=== PATIENT | female | born 1990 | race Two or more races ===

== ENCOUNTER 2016-10-13 10:25 | Emergency (ER) | payer MEDICAID ==
[2016-10-13] MEDS ORDERED: levETIRAcetam 1,000 MG in NS 100 ML IV ONE (10:38)
--- NOTE | 2016-10-13 10:38 | EDPHY ---
H & P Constitutional: Initial Vital Signs Temperature (C) 37.1 C 10/13/16 10:32 Heart Rate 105 H 10/13/16 10:32 Respiratory Rate 12 10/13/16 10:32 Blood Pressure 133/75 H 10/13/16 10:32 O2 Sat (%) 99 10/13/16 10:32 O2 Delivery Mode Room Air O2 (L/minute) 2 Allergies/Adverse Reactions: No Known Allergies Allergy (Unverified 10/13/16 10:37) Home Medications: Medication Instructions Recorded Keppra 10/13/16 Medical Decision Making ED Course/Re-evaluation: CHIEF COMPLAINT: Seizure HISTORY OF PRESENT ILLNESS: This patient is a 26 year old female with history of seizure disorder arriving via EMS following a witnessed seizure shortly prior to arrival. She has had two seizures yesterday, and this is her second today. She does take Keppra and one other medication, and does not think she has missed any doses of her medications. She states she takes 1000mg Keppra BID. EMS administered 5mg Versed in transport for symptom relief while the patient was postictal. She is currently alert but somnolent. She endorses increased working to breathe. No fever, chest pain, vomiting, or other associated symptoms. REVIEW OF SYSTEMS: A 10 point review of systems was performed and is negative with the exception of the elements mentioned in the history of present illness. PHYSICAL EXAM: HR, BP, O2 Sat, RR. Temp noted General Appearance: Alert, well hydrated, appropriate, and non-toxic appearing. Head: Atraumatic without scalp tenderness or obvious injury Eyes: Pupils equal, round, reactive to light and accommodation, EOMI, no trauma , no injection. Ears: Clear bilaterally, no perforation, normal landmarks Nose: Atraumatic, no rhinorrhea, clear. Throat: There is no erythema or exudates, no lesions, normal tonsils, mucus membranes moist. Neck: Supple, nontender, no lymphadenopathy. Respiratory: No retractions, no distress, no wheezes, and no accessory muscle use. Lungs are clear to auscultation bilaterally. Cardiovascular: Regular rate and rhythm, no murmurs, rubs, or gallops. Good capillary refill all extremities. Gastrointestinal: Abdomen is soft, nontender, non-distended, no masses, no rebound, no guarding, no peritoneal signs. Musculoskeletal: Normal active ROM of all extremities, atraumatic. Neurological: Alert, appropriate, and interactive. The patient has normal DTRs and non-focal cranial nerves, motor, sensory, and cerebellar exam. Skin: No rashes, good turgor, no nodules on palpation. Past medical history: Seizure disorder Past surgical history: Noncontributory Family history: Noncontributory Social history: . at bedside. Lives in [place]. DIFFERENTIAL DIAGNOSIS: The differential diagnosis for the patient's seizure included but was not limited to electrolyte abnormality, alcohol withdrawal, medication noncompliance , head injury, DEPUTY COURT structural abnormality, and break through seizure. MEDICAL DECISION MAKIN26 year old female presents following witnessed seizure. Plan to administer 1gm IV Keppra. No signs of trauma noted on exam. The patient is followed by Dr. Ray [facility]. Plan to consult with Dr. Ray for further information regarding patient's medications and treatment. Plan for labs including CBC, BCHG. BCHG negative. Consulted with Dr. Moy Ray, patient's neurologist. He confirms 1000mg Keppra BID as well as 200mg Vimpat BID. He is comfortable following up with the patient in an outpatient setting. Discussed with patient. She feels comfortable with discharge home. She will follow up with [facility]. Return precautions discussed. The patient is comfortable with this plan. - Data Points Laboratory Results: Laboratory Results 10/13/16 11:20 10/13/16 11:20 10/13/16 10/13/16 10/13/16 11:20 11:20 11:00 WBC 5.58 10^3/uL 10^3/uL (3.80-9.50) RBC 5.00 10^6/uL 10^6/uL (4.18-5.33) Hgb 12.8 g/dL g/dL (12.6-16.3) Hct 41.8 % % (38.0-47.0) MCV 83.6 fL fL (81.5-99.8) MCH 25.6 pg L pg (27.9-34.1) MCHC 30.6 g/dL L g/dL (32.4-36.7) RDW 15.2 % % (11.5-15.2) Plt Count 290 10^3/uL 10^3/uL (150-400) MPV 11.7 fL fL (8.7-11.7) Neut % (Auto) 40.9 % % (39.3-74.2) Lymph % (Auto) 47.0 % H % (15.0-45.0) [place] % (Auto) 10.0 % % (4.5-13.0) Eos % (Auto) 1.4 % % (0.6-7.6) Baso % (Auto) 0.7 % % (0.3-1.7) Nucleat RBC Rel Count 0.0 % % (0.0-0.2) Absolute Neuts (auto) 2.28 10^3/uL 10^3/uL (1.70-6.50) Absolute Lymphs (auto) 2.62 10^3/uL 10^3/uL (1.00-3.00) Absolute Monos (auto) 0.56 10^3/uL 10^3/uL (0.30-0.80) Absolute Eos (auto) 0.08 10^3/uL 10^3/uL (0.03-0.40) Absolute Basos (auto) 0.04 10^3/uL 10^3/uL (0.02-0.10) Absolute Nucleated RBC 0.00 10^3/uL 10^3/uL (0-0.01) Immature Gran % 0.0 % % (0.0-1.1) Immature Gran # 0.00 10^3/uL 10^3/uL (0.00-0.10) Sodium 145 mEq/L H mEq/L (134-144) Potassium 4.2 mEq/L mEq/L (3.5-5.2) Chloride 106 mEq/L mEq/L (97-110) Carbon Dioxide 16 mEq/l L mEq/l (22-31) Anion Gap 23 mEq/L H mEq/L (8-16) BUN 10 mg/dL mg/dL (7-23) Creatinine 0.7 mg/dL mg/dL (0.6-1.0) Estimated GFR > 60 Glucose 98 mg/dL mg/dL (70-100) Calcium 10.0 mg/dL mg/dL (8.5-10.4) Total Bilirubin 0.8 mg/dL mg/dL (0.1-1.4) AST 28 IU/L IU/L (14-46) ALT 35 IU/L IU/L (9-52) Alkaline Phosphatase 79 IU/L IU/L (38-126) Total Protein 8.4 g/dL H g/dL (6.3-8.2) Albumin 5.0 g/dL g/dL (3.5-5.0) Beta HCG, Qual NEGATIVE Beta HCG, Quant < 2.39 mIU/mL mIU/mL (0.00-4.83) Medications Given: Discontinued Medications Levetiracetam 1,000 mg/ Sodium (Chloride) 110 mls @ 440 mls/hr IV EDNOW ONE Stop: 10/13/16 10:52 Last Admin: 10/13/16 11:16 Dose: 110 mls Departure - Departure Disposition: Home, Routine, Self-Care Clinical Impression: Seizure Condition: Good Instructions: Recurrent Seizures in Adults (ED) Additional Instructions: 1. Continue taking your medications as prescribed. 2. Follow up with the [facility] this week for continued evaluation. Call today for an appointment. 3. Return for recurrent uncontrollable or prolonged seizures or other worsening of condition. Referrals: Patient,NotPresent [Primary Care Provider] - As per Instructions Cory KUMAR, Moy [Other] - As per Instructions Report Scribed for: Filipe Dupree Report Scribed by: Yue Pearl Date of Report: 10/13/16 Time of Report: 11:36
[2016-10-13 11:24] LABS: ADD DIFF? NO; ADD MORPH? NO; ADD SCAN? NO; ATYPICAL LYMPHOCYTE FLAG 20 (0-99); FRAGMENT RBC FLAG 0 (0-99); HEMATOCRIT 41.8 % (38.0-47.0); HEMOGLOBIN 12.8 g/dL (12.6-16.3); LEFT SHIFT FLG 0 (0-99); LIPEMIA HEMOLYSIS FLAG 80 (0-99); MEAN CELL HEMOGLOBIN 25.6 pg (27.9-34.1); MEAN CELL HEMOGLOBIN CONCENTR. 30.6 g/dL (32.4-36.7); MEAN CELL VOLUME 83.6 fL (81.5-99.8); MEAN PLATELET VOLUME 11.7 fL (8.7-11.7); PLATELET CLUMPS FLAG 0 (0-99); PLATELET COUNT 290 10^3/uL (150-400); RED CELL DISTRIBUTION WIDTH 15.2 % (11.5-15.2)
[2016-10-13 11:42] LABS: ALANINE AMINOTRANSFERASE 35 IU/L (9-52); ALKALINE PHOSPHATASE 79 IU/L (38-126); ANION GAP 23 mEq/L (8-16); ASPARTATE AMINOTRANSFERASE 28 IU/L (14-46); BILIRUBIN,TOTAL 0.8 mg/dL (0.1-1.4); CARBON DIOXIDE 16 mEq/l (22-31); CHLORIDE 106 mEq/L (97-110); CREATININE 0.7 mg/dL (0.6-1.0); GLOMERULAR FILTRATION RATE > 60; GLUCOSE 98 mg/dL (70-100); POTASSIUM 4.2 mEq/L (3.5-5.2); SODIUM 145 mEq/L (134-144); TOTAL PROTEIN 8.4 g/dL (6.3-8.2)
[2016-10-13 12:21] VITALS: BP 121/81; PULSE 83; RESP 18; TEMP 98.2; O2SAT 94
== END 2016-10-13 12:17 | disposition home or self-care (01) ==
DX: G40.909 Epilepsy, unspecified, not intractable, without status epilepticus (principal)
CPT/HCPCS: 96365; J1953